=== PATIENT | female | born 1935 | race Caucasian/White ===

== ENCOUNTER 2017-01-28 09:56 | Day surgery (SDC) | payer OTHER ==
[~2017-01-28] VITALS: Ht 154.9 cm; Wt 60.7 kg
[~2017-01-28 09:56] MED LIST: ASPI-650; HYDR12.53 PO; LOSA25TA2 PO; METF500T4 PO; METO25TA4 PO; NAPR250T PO; OMEP20TA42 PO; PIOG30TA19 PO
[2017-01-28 10:42] VITALS: Ht 154.9 cm; Wt 60.7 kg
[2017-01-28 11:04] VITALS: BP 121/68; PULSE 68; RESP 16
[2017-01-28] MEDS ORDERED: LIDOCAINE 2% (SDV) 5 ML INJ ONE (11:30)
[2017-01-28] MEDS ORDERED: PROPOFOL 20 ML ONE (11:30)
--- NOTE | 2017-01-28 14:26 | GILP ---
DATE OF PROCEDURE: 01/28/2017 NAME OF PROCEDURE: Colonoscopy. SURGEON: Jessica Patiño MD PREOPERATIVE DIAGNOSES: 1. Change in bowel habit. 2. Positive occult blood in stool. POSTOPERATIVE DIAGNOSES: 1. Redundant colon, and cecum could not be reached. 2. Internal hemorrhoids. INDICATION FOR THE PROCEDURE: Ms. Heidi Stringer is an 81-year-old female patient who no ticed a change in the bowel habit. She was found to have positive occult blood in stool, so the pat ient was scheduled for colonoscopy for further evaluation. The procedure and possible complications were well explained to the patient and the family, and cons ent was obtained. DESCRIPTION OF PROCEDURE: Under the influence of anesthesia, the colonoscope was carefully introduc ed in the rectum, and under direct vision, it was advanced to the whole length of the scope. The pa tient had a very redundant colon, and the cecum could not be reached. The patient was noted to have hemorrhoids. In the examined area of the colon, no colon neoplasm was identified. She tolerated the procedure very well, and there was no complication from the procedure. At the end of the procedure, she was awake with stable vital signs, and she was discharged home to the care of her family. IMPRESSION: 1. Redundant colon, and cecum could not be reached. 2. Internal hemorrhoids. 3. No colon neoplasm was identified in the area of the colon examined. PLAN: Barium enema for the evaluation of the proximal part of the colon. Dictated By: JESSICA TARIQ/HAZEL Conf#: [id number] DID#: [id number]
== END 2017-01-28 16:37 | disposition home or self-care (01) ==
LOC: GIL 09:56
PROVIDERS: ATTEND Internal Medicine Gastroenterology
DX: R19.4 Change in bowel habit (principal); K64.8 Other hemorrhoids; I10 Essential (primary) hypertension; E11.9 Type 2 diabetes mellitus without complications